=== PATIENT | male | born 1980 | race Two or more races ===

== ENCOUNTER 2017-02-24 09:26 | Emergency (ER) | payer MEDICAID ==
[~2017-02-24] VITALS: Ht 180.3 cm; Wt 104.3 kg
[2017-02-24 09:26] VITALS: BP 145/69
== END 2017-02-24 10:20 | disposition home or self-care (01) ==
LOC: ER 09:28
DX: L03.115 Cellulitis of right lower limb (principal); F17.210 Nicotine dependence, cigarettes, uncomplicated
CPT/HCPCS: 99284; A4606; Z7610

== ENCOUNTER 2017-09-24 15:01 | Emergency (ER) | payer BC, MEDICAID, OTHER ==
[~2017-09-24] VITALS: Ht 180.3 cm; Wt 115.7 kg
--- NOTE | 2017-09-24 15:05 | NUR ---
AAOX3, BIB MOM C/ORLE CELLULITIS S/P Sx 5 MONTHS AGO. RR IS EVEN AND UNLABORED WITH NAD NOTED. CMS WNL. SKIN IS WARM AND DRY. PROVIDED WARM BLANKET FOR COMFORT. AWAITING MD FOR EVAL.
[2017-09-24] MEDS ORDERED: FAMOTIDINE/PF INJ 20 MG/2 ML VIAL IV ONE ×2 (15:30→15:48)
[2017-09-24] MEDS ORDERED: PIPERACILLIN /TAZOBACTAM 3.375 G in IV D5W 50 ML IV ONE (15:30)
[2017-09-24 15:35] LABS: BASOPHILS # (AUTO) 0.1 /CMM (0.0-0.2); BASOPHILS % (AUTO) 0.9 % (0.0-2.0); EOSINOPHILS % (AUTO) 4.6 % (0.0-6.0); HEMATOCRIT 44 % (39-51); HEMOGLOBIN 15.8 g/dL (13.5-17.5); LYMPHOCYTES # (AUTO) 3.3 /CMM (0.8-4.8); LYMPHOCYTES % (AUTO) 30.8 % (20.0-44.0); MEAN CORPUSCULAR HGB CONC 36 g/dl (31.0-36.0); MEAN CORPUSCULAR VOLUME 85 fL (80-96); MONOCYTES # (AUTO) 0.4 /CMM (0.1-1.30); MONOCYTES % (AUTO) 3.6 % (2.0-12.0); NEUTROPHILS # (AUTO) 6.5 /CMM (1.8-8.9); NEUTROPHILS % (AUTO) 60.1 % (43.0-81.0); PLATELET COUNT (AUTO) 335 /CMM (150-450); RDW COEFFICIENT OF VARIATION 11.8 (11.5-15.0); RED BLOOD CELL COUNT(AUTO) 5.19 MIL/uL (4.5-6.0); WHITE BLOOD COUNT (AUTO) 10.8 K/uL (4.3-11.0)
[2017-09-24] MEDS ORDERED: DIPH25CA6 PO (15:38)
[2017-09-24 15:44] LABS: CALCIUM, SERUM 9.1 mg/dL (8.5-10.1); POTASSIUM 4.1 mmol/L (3.5-5.1)
[2017-09-24 17:14] VITALS: BP 110/76
== END 2017-09-24 17:15 | disposition home or self-care (01) ==
LOC: ER 15:03
DX: L03.115 Cellulitis of right lower limb (principal); L30.9 Dermatitis, unspecified; F10.10 Alcohol abuse, uncomplicated; F17.200 Nicotine dependence, unspecified, uncomplicated; Z88.1 Allergy status to other antibiotic agents
CPT/HCPCS: 36415; 80048; 82962; 85025; 96365; 96375; 99284; A4606; J2543; J3490; J7060; Z7610

== ENCOUNTER 2017-09-25 18:34 | Emergency (ER) | payer OTHER ==
[~2017-09-25] VITALS: Ht 180.3 cm; Wt 113.4 kg
[~2017-09-25 18:34] MED LIST: DIPH25CA6 PO
[2017-09-25 19:16] VITALS: BP 119/77
[2017-09-25] MEDS ORDERED: diphenhydrAMINE HCL 50 MG/ML VIAL IM ONE (20:00)
[2017-09-25] MEDS ORDERED: diphenhydrAMINE HCL 50 MG/ML VIAL ONE (20:21)
== END 2017-09-25 20:29 | disposition home or self-care (01) ==
LOC: ER 18:38
DX: R21 Rash and other nonspecific skin eruption (principal); Z88.1 Allergy status to other antibiotic agents; F17.200 Nicotine dependence, unspecified, uncomplicated
CPT/HCPCS: A4606; J1200; Z7610

== ENCOUNTER 2020-12-24 12:47 | Inpatient (IN) | payer MEDICAID ==
[~2020-12-24] VITALS: Ht 180.3 cm; Wt 127.0 kg
[~2020-12-24 12:47] MED LIST changes: +DIPH25CA51 PO; -DIPH25CA6 PO
--- NOTE | 2020-12-24 13:25 | NUR ---
THE PATIENT IS BIBS FOR C/O SKIN REDNESS/DISCOLORATION STARTED 3 DAYS AGO IN PREVIOUS SURGICAL SITE, RIGHT LEG. RATES PAIN 6/10. IN ROOM AIR AND DENIES SOB. RESPIRATION REGULAR AND UNLABORED. WILL CONTINUE TO MONITOR THE PATIENT.
--- NOTE | 2020-12-24 14:10 | NUR ---
no apparent change in condition, to er bed 1
[2020-12-24] MEDS ORDERED: VANCOMYCIN 1 GM in IV D5W 250 ML IV ONE (14:30)
[2020-12-24 14:48] LABS: BASOPHILS # (AUTO) 0.1 K/uL (0.0-0.2); BASOPHILS % (AUTO) 0.8 % (0.0-2.0); HEMATOCRIT 43 % (39-51); HEMOGLOBIN 14.3 g/dL (13.5-17.5); LYMPHOCYTES # (AUTO) 2.9 K/uL (0.8-4.8); LYMPHOCYTES % (AUTO) 25.6 % (20.0-44.0); MEAN CORPUSCULAR HGB CONC 33 g/dl (31.0-36.0); MEAN CORPUSCULAR VOLUME 88 fL (80-96); MONOCYTES # (AUTO) 0.9 K/uL (0.1-1.30); MONOCYTES % (AUTO) 8.4 % (2.0-12.0); NEUTROPHILS % (AUTO) 62.2 % (43.0-81.0); PLATELET COUNT (AUTO) 273 K/uL (150-450); WHITE BLOOD COUNT (AUTO) 11.2 K/uL (4.3-11.0)
[2020-12-24 14:58] LABS: ALBUMIN 3.7 g/dL (3.4-5.0); BILIRUBIN,DIRECT 0.1 mg/dL (0.0-0.2); BILIRUBIN,TOTAL 0.6 mg/dL (0.2-1.0); CALCIUM, SERUM 8.9 mg/dL (8.5-10.1); CREATININE 0.9 mg/dL (0.6-1.3); POTASSIUM 4.5 mmol/L (3.5-5.1)
--- NOTE | 2020-12-24 15:03 | NUR ---
MOVE SHEET SUBMITTED
--- NOTE | 2020-12-24 15:09 | NUR ---
COVID SWAB SENT TO LAB.
--- NOTE | 2020-12-24 15:24 | NUR ---
[facility] CALLED TELECOMMUNICATIONS LINESWORKER PAGED.
--- NOTE | 2020-12-24 16:00 | NUR ---
GOT BED 313-1
--- NOTE | 2020-12-24 16:07 | NUR ---
Sonya garrett in [facility] - 12/24/20 at 1611 by WENDY PATIENT TRANSFERRED TO ROOM [facility] IN STABLE CONDITION. NO DISTRESS NOTED.
[2020-12-24 16:30] VITALS: BP 130/77
--- NOTE | 2020-12-24 16:41 | NUR ---
REPORT GIVEN TO BRYON WRIGHT FOR IOANA.
--- NOTE | 2020-12-24 16:51 | NUR ---
PATIENT TRANSFERRED TO [facility], IN NO DISTRESS. PATIENT IN STABLE CONDITION.
[2020-12-24] MEDS ORDERED: MAG HYDROX/AL HYDROX/SIMETH 30 ML UDC PO PRN (17:30)
[2020-12-24] MEDS ORDERED: ZOLPIDEM TARTRATE 5 MG TABLET PO PRN (17:30)
[2020-12-24] MEDS ORDERED: HYDROCODONE/APAP 10/325MG TABLET PO PRN (17:30)
[2020-12-24] MEDS ORDERED: HYDROCODONE/APAP 5/325MG TABLET PO PRN (17:30)
[2020-12-24] MEDS ORDERED: ONDANSETRON HCL/PF 4 MG/2 ML VIAL IVP PRN (17:30)
[2020-12-24] MEDS ORDERED: MAGNESIUM HYDROXIDE 30 ML UDC PO PRN (17:30)
[2020-12-24] MEDS ORDERED: Z GUARD REMEDY 2 OZ OINT TP PRN (17:30)
[2020-12-24] MEDS ORDERED: ACETAMINOPHEN 325 MG TABLET PO PRN (17:30)
[2020-12-24] MEDS ORDERED: VANCOMYCIN 0.75 GM in IV D5W 250 ML IV ONE (18:00)
--- NOTE | 2020-12-24 19:00 | NUR ---
MS RN OPENING NOTE RECEIVED PT AWAKE IN BED AT THIS TIME. AOX4, ABLE TO MAKE NEEDS KNOWN. NO SOB NOTED. NO C/O PAIN AT THIS TIME, NO S/O ANY ACUTE DISTRESS NOTED. RESPIRATIONS EVEN AND UNLABORED, STABLE ON RA. IV ACCESS RAC 18G. SAFETY PRECAUTIONS IN PLACE AND MAINTAINED AT ALL TIMES. BED IN LOWEST LOCKED POSITION, HOB ELEVATED, SIDE RAILS UP X2, CALL LIGHT AND TABLE WITHIN REACH. WILL CONTINUE TO MONITOR
[2020-12-24 20:00] VITALS: BP 93/55
[2020-12-25] MEDS: VANCOMYCIN 1.25 GM in IV D5W 250 ML IV SCH ×3 (02:01→18:46)
--- NOTE | 2020-12-25 06:00 | NUR ---
ENDORSE TO AM NURSE
--- NOTE | 2020-12-25 06:10 | NUR ---
RN CLOSING NOTE PT IS AWAKE. ENDORSE TO AM NURSE
[2020-12-25 06:29] LABS: BASOPHILS # (AUTO) 0.1 K/uL (0.0-0.2); BASOPHILS % (AUTO) 0.9 % (0.0-2.0); EOSINOPHILS % (AUTO) 4.2 % (0.0-6.0); HEMATOCRIT 41 % (39-51); HEMOGLOBIN 13.8 g/dL (13.5-17.5); LYMPHOCYTES # (AUTO) 3.4 K/uL (0.8-4.8); LYMPHOCYTES % (AUTO) 32.2 % (20.0-44.0); MEAN CORPUSCULAR HGB CONC 34 g/dl (31.0-36.0); MEAN CORPUSCULAR VOLUME 88 fL (80-96); MONOCYTES % (AUTO) 9.3 % (2.0-12.0); NEUTROPHILS # (AUTO) 5.7 K/uL (1.8-8.9); NEUTROPHILS % (AUTO) 53.4 % (43.0-81.0); PLATELET COUNT (AUTO) 271 K/uL (150-450); RED BLOOD CELL COUNT(AUTO) 4.59 MIL/uL (4.5-6.0); WHITE BLOOD COUNT (AUTO) 10.6 K/uL (4.3-11.0)
[2020-12-25 07:12] LABS: THYROID STIMULATING HORMONE 3.077 uIU/mL (0.358-3.74)
[2020-12-25 07:16] LABS: CALCIUM, SERUM 8.8 mg/dL (8.5-10.1); CREATININE 1.1 mg/dL (0.6-1.3); MAGNESIUM 2.4 mg/dL (1.8-2.4); PHOSPHORUS 5.4 mg/dL (2.5-4.9); POTASSIUM 4.5 mmol/L (3.5-5.1)
[2020-12-25 08:00] VITALS: BP 136/83
--- NOTE | 2020-12-25 14:06 | NUR ---
Patient is AOx4 complied with all medication regimens no s/s of infection at IV site skin intact no SOD nor SOB, ate 100% of food V/S are as followed B/P 128/79, P73, Resp. 16, Temp.97.4, [id number]%, call light is within reach will continue to monitor.
[2020-12-25 16:00] VITALS: BP 124/81
--- NOTE | 2020-12-25 19:00 | NUR ---
MS RN OPENING NOTE PT AWAKE IN BED AT THIS TIME. AOX4, ABLE TO MAKE NEEDS KNOWN. NO SOB NOTED. NO C/O PAIN AT THIS TIME, NO S/O ANY ACUTE DISTRESS NOTED. RESPIRATIONS EVEN AND UNLABORED, STABLE ON RA. IV ACCESS RU MIDLINE. SAFETY PRECAUTIONS IN PLACE AND MAINTAINED AT ALL TIMES. BED IN LOWEST LOCKED POSITION, HOB ELEVATED, SIDE RAILS UP X2, CALL LIGHT AND TABLE WITHIN REACH. WILL CONTINUE TO MONITOR
[2020-12-25 20:00] VITALS: BP 126/77
[2020-12-26] MEDS: VANCOMYCIN 1.5 GM in IV D5W 500 ML IV SCH ×3 (02:07→18:08)
--- NOTE | 2020-12-26 06:02 | NUR ---
RN CLOSING NOTE PT AWAKE IN BED NO S/S OF RESPIRATORY DISTRESS. PT REMAINED STABLE ON RA THROUGHOUT SHIFT.SAFETY MEASURES IN PLACE. SIDE RAILS RAISED. BED LOWERED. CALL LIGHT WITHIN REACH. REPORT TO BE GIVEN TO AM NURSE FOR IOANA.
[2020-12-26 07:12] LABS: CALCIUM, SERUM 8.5 mg/dL (8.5-10.1); POTASSIUM 4.7 mmol/L (3.5-5.1)
--- NOTE | 2020-12-26 07:20 | NUR ---
MS RN OPENING NOTE PATIENT ALERT AND ORIENTED X 4 ON BED. PATIENT WITH EQUAL AND UNLABORED BREATHING, WITH NO SIGNS OF RESPIRATORY DISTRESS. WITH RIGHT UPPER ARM MIDLINE FR18 PATENT AND INTACT. PATIENT IS AMBULATORY WITH STEADY GAIT. NO COMPLAIN OF PAIN OR DISCOMFORT. COMFORT MEASURES PROVIDED. SAFETY MEAURES ENSURED WITH BED AT LOWEST POSITION AND LOCKED. WITH SIDERAILS RAISED AND TABLE AND CALL LIGHT WITHIN REACH AT ALL TIMES. WILL CONTINUE TO MONITOR PATIENT.
[2020-12-26 08:34] VITALS: BP 133/98
--- NOTE | 2020-12-26 10:30 | NUR ---
MS RN NOTE PATIETN SEEN BY DR. MOREL.
--- NOTE | 2020-12-26 15:05 | NUR ---
Stock Sorter consult: oil well services superintendent consult for substance use. Patient is a 40-year-old, male. SW met with patient at his bedside in the med-surg unit. Patient was alert and oriented x4. Patient presented ambulatory. Patient stated that he currently lives with family at [address] [place] [id number]; [phone]. SW asked patient if he has access to social support and patient stated he has support from his family. Patient stated that he is currently employed. SW asked patient about his history of substance use and patient denied substance use. Patient denied history of mental illness. Patient denied suicidal or homicidal ideation. SW discussed discharge plans with the patient and patient stated that his family would be providing transportation. PLAN: Patient will return to his prior living arrangement at the time of discharge. No further SS intervention at this time, however, SW will remain available as needed.
[2020-12-26 16:29] VITALS: BP 159/92
--- NOTE | 2020-12-26 18:59 | NUR ---
MS RN CLOSING NOTE PATIENT ALERT AND ORIENTED X 4 ON BED. PATIENT WITH EQUAL AND UNLABORED BREATHING, WITH NO SIGNS OF RESPIRATORY DISTRESS. WITH RIGHT UPPER ARM MIDLINE FR18 PATENT AND INTACT. PATIENT IS AMBULATORY WITH STEADY GAIT. NO COMPLAIN OF PAIN OR DISCOMFORT. COMFORT MEASURES PROVIDED. SAFETY MEAURES ENSURED WITH BED AT LOWEST POSITION AND LOCKED. WITH SIDERAILS RAISED AND TABLE AND CALL LIGHT WITHIN REACH AT ALL TIMES. PATIENT ENDORSED TO NEXT SHIFT FOR CONTINUITY OF CARE.
--- NOTE | 2020-12-26 19:15 | NUR ---
MS RN NOTES IV VANCOMYCIN DISCONTINUED PER PHARMACY ORDER. PATIENT BARELY HAD ANY INFUSED BECAUSE PATIENT WAS IN THE BATHROOM ALL THE TIME. ENDORSED ACCORDINGLY.
--- NOTE | 2020-12-26 19:16 | NUR ---
CONTINUITY OF CARE Patient sitting up in bed, awake, A/O x4. Right lower leg with discoloration erythema and warmth, patient denies pain at this time. YURY midline, vancomycin infusion was stopped by ADRIANA Rivera, per pharmacy instruction. Vancomycin trough high. Will cont to monitor, call light within reach.
[2020-12-26 20:00] VITALS: BP 153/73
--- NOTE | 2020-12-27 01:52 | NUR ---
SHOWER Patient requesting to take shower, per patient he normally take shower before he goes to sleep, and he didnt do it earlier. Patient has no open wound. Notified Dr. Watt with order placed. Instructed patient to call for assistance if needed inside shower room, verbalized understanding.
--- NOTE | 2020-12-27 06:06 | NUR ---
END OF SHIFT REPORT Patient is A/O x4. Right leg cellulitis. On IV Vancomycin, Afebrile. No c/o pain. Independent with ambulation. Plan for dc home with PO Abx. Will endorse to oncoming RN.
--- NOTE | 2020-12-27 07:35 | NUR ---
MS RN OPENING NOTES RECEIVED PATIENT IN BED, AWAKE, A/O X4. PATIENT ON ROOM AIR; BREATHING EVEN AND UNLABORED. AMBULATORY. NO COMPLAINS OF PAIN. YURY MIDLINE PRESENT AND INTACT; SL. SAFETY PRECAUTIONS IN PLACE; BED IN LOW POSITIONA DN LOCKED, RAILS UP X2, CALL LIGHT WITHIN REACH. WILL CONTINUE TO MONITOR PATIENT.
[2020-12-27 08:00] VITALS: BP 134/93
[2020-12-27 08:06] LABS: CALCIUM, SERUM 8.5 mg/dL (8.5-10.1); CREATININE 0.9 mg/dL (0.6-1.3); POTASSIUM 4.8 mmol/L (3.5-5.1)
[2020-12-27] MEDS ORDERED: VANCOMYCIN 1.25 GM in IV D5W 250 ML IV SCH (10:00)
--- NOTE | 2020-12-27 14:30 | NUR ---
MS ROPE TOW OPERATOR NOTES PATIENT DISCHARGED HOME IN MEDICALLY STABLE CONDITION. PATIENT A/O X4 AND ABLE TO MAKE NEEDS KNOWN. ALL DISCHARGE DOCUMENTATION READY, TEACHING REGARDING DISCHARGE AND PHYSICIAN ORDER PROVIDED; PATIENT VERBALIZED UNDERSTANDING. DISCHARGE PAPERS SIGNED. BELONGINGS ACCOUNTED FOR AND FORM SIGNED WELL. BEFORE LEAVING THE UNIT IV ACCESS WAS REMOVED WITH THE WRISTBAND. PATIENT LEFT THE UNIT AT 1420 AND WAS PICKED UP BY HIS BROTHER IN A PRIVATE CAR.
== END 2020-12-27 14:24 | disposition home or self-care (01) | DRG 383 ==
LOC: ER 12:59 → MED 16:42
PROC: 05H933Z Insertion of Infusion Device into Right Brachial Vein, Percutaneous Approach (ICD-10-PCS; principal; 2020-12-25)
DX: L03.115 Cellulitis of right lower limb (principal); F17.210 Nicotine dependence, cigarettes, uncomplicated; Z20.822 Contact with and (suspected) exposure to COVID-19; Z88.1 Allergy status to other antibiotic agents; V89.2XXS Person injured in unspecified motor-vehicle accident, traffic, sequela; Z87.81 Personal history of (healed) traumatic fracture
CPT/HCPCS: 36415; 71045-TC; 73590-TC; 73610-TC; 80048-TC; 80061-TC; 80076-TC; 80202-TC; 83605-TC; 83735-TC; 84100-TC; 84443-TC; 85025-TC; 85730-TC; 87040-TC; 87081-TC; 93971-TC; C9803; G0378; J3370; J7050; J7060

== ENCOUNTER 2021-07-06 11:12 | Emergency (ER) | payer MEDICAID, OTHER ==
[~2021-07-06] VITALS: Ht 180.3 cm; Wt 129.3 kg
[2021-07-06 11:24] VITALS: BP 133/83
--- NOTE | 2021-07-06 11:27 | NUR ---
BIBS FOR C/O RLE PAIN AND SWELLING, DISCOLORATION X 2 DAYS. RATES PAIN 10/10. RESPIRATION REGULAR AND UNLABORED. WILL CONTINUE TO MONITOR THE PATIENT.
[2021-07-06] MEDS ORDERED: SULF1TAB48 PO (11:46)
== END 2021-07-06 13:45 | disposition home or self-care (01) ==
LOC: ER 11:14
DX: L03.115 Cellulitis of right lower limb (principal); F17.200 Nicotine dependence, unspecified, uncomplicated; Z88.1 Allergy status to other antibiotic agents; Z88.8 Allergy status to other drugs, medicaments and biological substances

== ENCOUNTER 2021-09-29 17:41 | Emergency (ER) | payer OTHER ==
[~2021-09-29] VITALS: Ht 180.3 cm; Wt 136.1 kg
[~2021-09-29 17:41] MED LIST changes: +SULF1TAB48 PO
--- NOTE | 2021-09-29 17:52 | NUR ---
CAME IN FOR WORSENING BLE CELLULITIS (MORE ON THE LEFT) x 1 WEEK. TO ER BED 14, HOOKED TO MONITOR, CHANGED TO HOSP GOWN, WARM BLANKET PROVIDED. PATIENT AAO x 4. NOT IN DISTRESS. AWAITING MD BHANDARI
[2021-09-29] MEDS ORDERED: SULFAMETH/TRIMETH 800/160 MG 1 UDTAB TABLET PO ONE (19:30)
[2021-09-29] MEDS ORDERED: HYDROCODONE/APAP 5/325MG TABLET PO ONE (19:30)
[2021-09-29] MEDS ORDERED: CEPHALEXIN MONOHYDRATE 500 MG CAPSULE PO ONE ×2 (19:30→19:56)
[2021-09-29] MEDS ORDERED: CEPH500C2 PO (19:32)
[2021-09-29] MEDS ORDERED: SULF1TAB48 PO (19:32)
[2021-09-29] MEDS ORDERED: HYDROCODONE/APAP 5/325MG TABLET ONE (19:56)
[2021-09-29] MEDS ORDERED: SULFAMETH/TRIMETH 800/160 MG 1 UDTAB TABLET ONE (19:56)
[2021-09-29 20:43] VITALS: BP 128/98
--- NOTE | 2021-09-29 20:43 | NUR ---
Patient discharged to home in stable condition. Written and verbal after care instructions given. Patient verbalizes understanding of instruction.
== END 2021-09-29 20:44 | disposition home or self-care (01) ==
LOC: ER 17:44
DX: L03.116 Cellulitis of left lower limb (principal); F17.200 Nicotine dependence, unspecified, uncomplicated; Z88.8 Allergy status to other drugs, medicaments and biological substances; Z79.899 Other long term (current) drug therapy

== ENCOUNTER 2021-11-07 12:19 | Inpatient (IN) | payer OTHER ==
[~2021-11-07] VITALS: Ht 180.3 cm; Wt 117.9 kg
[~2021-11-07 12:19] MED LIST changes: +CEPH500C2 PO
--- NOTE | 2021-11-07 12:45 | NUR ---
MOVE SHEET SUBMITTED.
[2021-11-07] MEDS ORDERED: HYDROCODONE/APAP 10/325MG TABLET PO ONE (13:00)
[2021-11-07] MEDS ORDERED: CLINDAMYCIN 900 MG in IV D5W 50 ML IV ONE (13:00)
[2021-11-07] MEDS ORDERED: VANCOMYCIN 1 GM in IV D5W 250 ML IV ONE (13:00)
[2021-11-07] MEDS ORDERED: AZTREONAM 1 G in IV NS 0.9% 100 ML IV ONE (13:00)
--- NOTE | 2021-11-07 13:00 | NUR ---
RECIVED PT 40 MALE CAME FROM HOME c/o swallen and rednessin both lower extramity with open new and old blister daring up no draining
--- NOTE | 2021-11-07 13:05 | NUR ---
Inserted andressa # [address] ac blood drow and sended to lab blood culure x 2 sended
[2021-11-07 13:08] LABS: BASOPHILS # (AUTO) 0.1 K/uL (0.0-0.2); BASOPHILS % (AUTO) 0.8 % (0.0-2.0); EOSINOPHILS % (AUTO) 2.9 % (0.0-6.0); HEMATOCRIT 33 % (39-51); HEMOGLOBIN 10.9 g/dL (13.5-17.5); LYMPHOCYTES # (AUTO) 1.8 K/uL (0.8-4.8); MEAN CORPUSCULAR HGB CONC 33 g/dl (31.0-36.0); MEAN CORPUSCULAR VOLUME 82 fL (80-96); MONOCYTES # (AUTO) 0.7 K/uL (0.1-1.30); MONOCYTES % (AUTO) 7.6 % (2.0-12.0); NEUTROPHILS % (AUTO) 70.7 % (43.0-81.0); PLATELET COUNT (AUTO) 339 K/uL (150-450); RED BLOOD CELL COUNT(AUTO) 4.01 MIL/uL (4.5-6.0); WHITE BLOOD COUNT (AUTO) 9.8 K/uL (4.3-11.0)
[2021-11-07] MEDS ORDERED: VANCOMYCIN 1 GM VIAL ONE (13:13)
[2021-11-07] MEDS ORDERED: HYDROCODONE/APAP 10/325MG TABLET ONE (13:14)
[2021-11-07 13:37] LABS: ALBUMIN 2.6 g/dL (3.4-5.0); BILIRUBIN,DIRECT 0.1 mg/dL (0.0-0.2); BILIRUBIN,TOTAL 0.5 mg/dL (0.2-1.0); CALCIUM, SERUM 8.3 mg/dL (8.5-10.1); CREATININE 0.9 mg/dL (0.6-1.3); POTASSIUM 3.6 mmol/L (3.5-5.1); TOTAL PROTEIN, SERUM 8.3 g/dL (6.4-8.2)
--- NOTE | 2021-11-07 14:12 | NUR ---
PT RESTING AND ASLEEPY NO PAIN
--- NOTE | 2021-11-07 15:25 | NUR ---
[facility] CALLED SENIOR GRANTS OFFICER PAGED.
--- NOTE | 2021-11-07 15:30 | NUR ---
ivan villeda sended to lab
--- NOTE | 2021-11-07 15:56 | NUR ---
GOT BED 320-2
--- NOTE | 2021-11-07 16:00 | NUR ---
HOSPITLIST HERE SEE AND EXAMIN PT MANUELOK WITH PT UA SEND TO LAB VODING FLEELY 800ML CLEAR YELLOW COLOR
--- NOTE | 2021-11-07 16:19 | NUR ---
MRSA SENT TO LAB
[2021-11-07] MEDS ORDERED: HYDROCODONE/APAP 5/325MG TABLET PO PRN (16:30)
[2021-11-07] MEDS ORDERED: ZOLPIDEM TARTRATE 5 MG TABLET PO PRN (16:30)
[2021-11-07] MEDS ORDERED: ONDANSETRON HCL/PF 4 MG/2 ML VIAL IVP PRN (16:30)
[2021-11-07] MEDS ORDERED: Z GUARD REMEDY 4 OZ OINT TP PRN (16:30)
[2021-11-07] MEDS ORDERED: MAG HYDROX/AL HYDROX/SIMETH 30 ML UDC PO PRN (16:30)
[2021-11-07] MEDS ORDERED: MAGNESIUM HYDROXIDE 30 ML UDC PO PRN (16:30)
[2021-11-07] MEDS ORDERED: ACETAMINOPHEN 325 MG TABLET PO PRN (16:30)
--- NOTE | 2021-11-07 16:52 | NUR ---
TO ROOM 320-1 HAND OFF NOLA RM VS STABLE PAIN 0/10
--- NOTE | 2021-11-07 17:35 | NUR ---
ms rn received a new admission from er, awake,alert,oriented x4,not in any form of distress, respirations even and unlabored,no sob noted, noted to have bilateral lower leg wounds w/ scab, will monitor patient.
[2021-11-07] MEDS: ENOXAPARIN SODIUM 40 MG/0.4 ML DISP.SYRIN SQ SCH (18:42)
--- NOTE | 2021-11-07 18:45 | NUR ---
ms rn due meds given,tolerated well.
[2021-11-07 20:00] VITALS: BP 102/68
--- NOTE | 2021-11-07 20:21 | NUR ---
MS RN OPENING NOTES: RECEIVED PATIENT AWAKE IN BED, BED IN LOW POSITION, CALL LIGHTS WITHIN REACH, NO COMPLAIN OF PAIN AND DISCOMFORT AT THIS TIME, ON ROOM AIR SATURATING WELL WITH IV LINE AT RAC#18 SL, PATIENT IS A/OX4 AMBULATORY ABLE TO MAKE NEED KNOWN, SKIN ASSESSMENT DONE DOCUMENTED, PATIENT KEPT CLEAN AND DRY ALL NEEDS MET WILL CONTINUE TO MONITOR.
[2021-11-07] MEDS ORDERED: CLINDAMYCIN IV RTU IN D5W 900 MG/50 ML PIGGYBACK IV SCH (21:00)
[2021-11-07] MEDS: CLINDAMYCIN 600 MG in IV D5W 50 ML IV SCH (21:02)
[2021-11-07] MEDS: VANCOMYCIN 1 GM in IV D5W 250 ML IV SCH (21:23)
[2021-11-08] MEDS: CLINDAMYCIN 600 MG in IV D5W 50 ML IV SCH (05:19)
[2021-11-08] MEDS: VANCOMYCIN 1 GM in IV D5W 250 ML IV SCH (05:34)
[2021-11-08 05:53] LABS: BASOPHILS # (AUTO) 0.1 K/uL (0.0-0.2); BASOPHILS % (AUTO) 0.7 % (0.0-2.0); EOSINOPHILS % (AUTO) 4.2 % (0.0-6.0); HEMATOCRIT 34 % (39-51); HEMOGLOBIN 11.2 g/dL (13.5-17.5); LYMPHOCYTES # (AUTO) 2.3 K/uL (0.8-4.8); LYMPHOCYTES % (AUTO) 23.6 % (20.0-44.0); MEAN CORPUSCULAR HGB CONC 33 g/dl (31.0-36.0); MEAN CORPUSCULAR VOLUME 82 fL (80-96); MONOCYTES # (AUTO) 0.7 K/uL (0.1-1.30); MONOCYTES % (AUTO) 7.3 % (2.0-12.0); NEUTROPHILS # (AUTO) 6.4 K/uL (1.8-8.9); NEUTROPHILS % (AUTO) 64.2 % (43.0-81.0); PLATELET COUNT (AUTO) 398 K/uL (150-450)
[2021-11-08 06:13] LABS: CALCIUM, SERUM 8.4 mg/dL (8.5-10.1); CREATININE 0.9 mg/dL (0.6-1.3); MAGNESIUM 2.1 mg/dL (1.8-2.4); PHOSPHORUS 4.1 mg/dL (2.5-4.9); POTASSIUM 4.2 mmol/L (3.5-5.1)
--- NOTE | 2021-11-08 06:34 | NUR ---
RN CLOSING NOTES: PATIENT SLEEP IN BED, AROUSABLE TO VERBAL STIMULI, BED IN LOW POSITION, CALL LIGHTS WITHIN REACH, NO COMPLAIN OF PAIN AND DISCOMFORT AT THIS TIME, PATIENT IS A/OX4 AMBULATORY,ABLE TO MAKE NEED KNOWN, ON ROOM AIR SATURATING WELL, WITH IV LINE AT RAC#18 SL, PATIENT KEPT CLEAN AND DRY ALL NEEDS MEET, ENDORSE TO INCOMING SHIFT.
--- NOTE | 2021-11-08 07:00 | NUR ---
MS RN OPENING NOTES PATIENT LAYING IN BED, A/O X 4, ABLE TO MAKE NEEDS KNOWN. TOLERATING WELL ON ROOM AIR WITH NO S/S RESPIRATORY DISTRESS OR SOB. NO COMPLAINTS OF PAIN OR DISCOMFORT AT THIS TIME. RAC # 18 CLEAN, INTACT, AND FLUSHING WELL. SAFETY MEASURES IN PLACE: BED IN LOWEST LOCKED POSITION, SIDE RAILS UP X 2, CALL LIGHT WITHIN REACH. WILL CONTINUE TO MONITOR.
[2021-11-08] MEDS ORDERED: PANTOPRAZOLE 40 MG TABLET.DR PO SCH (07:30)
[2021-11-08 08:00] VITALS: BP 126/88
[2021-11-08] MEDS: ENOXAPARIN SODIUM 40 MG/0.4 ML DISP.SYRIN SQ SCH (08:15)
--- NOTE | 2021-11-08 12:00 | NUR ---
PATIENT LEFT AMA @ 1200 PATIENT ABRUPTLY STATED HE NEEDED TO LEAVE IMMEDIATELY DUE TO A FAMILY EMERGENCY AND DECLINED TO PROVIDE FURTHER DETAILS. IV LINE REMOVED. PATIENT DRESSED HIMSELF IN OWN CLOTHING AND LEFT UNIT BEFORE MD DISCHARGE INSTRUCTIONS OR PAPERWORK WAS ABLE TO BE PROVIDED. MD WAS NOTIFIED OF AMA. Addendum: 11/08/21 at 1414 by LEIDY BUSTILLO RN RISKS OF PATIENT LEAVING HOSPITAL PRIOR TO MEDICAL CLEARANCE EXPLAINED, PATIENT AGAIN INSISTED ON LEAVING HOSPITAL IMMEDIATELY. INCIDENT REPORT FILED # [id number].
== END 2021-11-08 12:00 | disposition left against medical advice (07) | DRG 383 ==
LOC: ER 12:23 → MED 16:01
PROVIDERS: ADMIT Student in an Organized Health Care Education/Training Program; ATTEND Student in an Organized Health Care Education/Training Program
DX: L03.115 Cellulitis of right lower limb (principal); E44.0 Moderate protein-calorie malnutrition; E87.1 Hypo-osmolality and hyponatremia; E88.09 Other disorders of plasma-protein metabolism, not elsewhere classified; Z88.1 Allergy status to other antibiotic agents; D64.9 Anemia, unspecified; L03.116 Cellulitis of left lower limb; Z53.29 Procedure and treatment not carried out because of patient's decision for other reasons; F15.10 Other stimulant abuse, uncomplicated; F17.200 Nicotine dependence, unspecified, uncomplicated; F12.10 Cannabis abuse, uncomplicated; Y92.9 Unspecified place or not applicable; W57.XXXA Bitten or stung by nonvenomous insect and other nonvenomous arthropods, initial encounter
CPT/HCPCS: 36415; 73590-TC; 80048-TC; 80076-TC; 83605-TC; 83735-TC; 84100-TC; 85025-TC; 85730-TC; 87040-TC; 87081-TC; 97116-TC; 97530-TC; G0378; J1650; J3370; J3490; J7030; J7050; J7060

== ENCOUNTER 2021-12-16 04:49 | Emergency (ER) | payer OTHER ==
[~2021-12-16] VITALS: Ht 180.3 cm; Wt 127.0 kg
[2021-12-16 05:35] VITALS: BP 141/85
--- NOTE | 2021-12-16 05:44 | NUR ---
PT LEFT WITHOUT BEING SEEN BY MD AND DID NOT WISH TO HAVE ANY INTERVENTIONS PERFORMED. AMBULATED OUT OF ER WITH STEADY GAIT.
== END 2021-12-16 05:47 | disposition left against medical advice (07) ==
LOC: ER 04:51
DX: Z53.21 Procedure and treatment not carried out due to patient leaving prior to being seen by health care provider (principal)

== ENCOUNTER 2021-12-17 22:48 | Inpatient (IN) | payer OTHER ==
[~2021-12-17] VITALS: Ht 170.2 cm; Wt 108.0 kg
--- NOTE | 2021-12-18 01:13 | NUR ---
BIBMOTHER C/O KRISTOPHER LEG PAIN WITH WOUNDS. PATIENT ALERT AND ORIENTED X3. AMBULATORY WITH NON LABORED BREATHING IN BED 12 LORNA MONITOR AND POX, AWAITING MD BHANDARI.
[2021-12-18] MEDS ORDERED: VANCOMYCIN 1 GM VIAL ONE (01:21)
--- NOTE | 2021-12-18 01:28 | NUR ---
BLOOD CULTURES COLLECTED AND SENTT O LAB
--- NOTE | 2021-12-18 01:28 | NUR ---
BLOOD COLLECTED AND SENT TO LAB
[2021-12-18] MEDS ORDERED: VANCOMYCIN 1 GM in IV D5W 250 ML IV ONE (01:30)
[2021-12-18 01:44] LABS: BASOPHILS % (AUTO) 0.3 % (0.0-2.0); EOSINOPHILS % (AUTO) 0.2 % (0.0-6.0); HEMATOCRIT 37 % (39-51); LYMPHOCYTES # (AUTO) 1.3 K/uL (0.8-4.8); LYMPHOCYTES % (AUTO) 8.7 % (20.0-44.0); MEAN CORPUSCULAR HGB CONC 33 g/dl (31.0-36.0); MEAN CORPUSCULAR VOLUME 81 fL (80-96); MONOCYTES # (AUTO) 0.4 K/uL (0.1-1.30); MONOCYTES % (AUTO) 2.5 % (2.0-12.0); NEUTROPHILS % (AUTO) 88.3 % (43.0-81.0); PLATELET COUNT (AUTO) 463 K/uL (150-450); RED BLOOD CELL COUNT(AUTO) 4.54 MIL/uL (4.5-6.0); WHITE BLOOD COUNT (AUTO) 14.8 K/uL (4.3-11.0)
[2021-12-18 01:56] LABS: CALCIUM, SERUM 8.3 mg/dL (8.5-10.1); CARBON DIOXIDE 24 mmol/L (21-32); CHLORIDE 96 mmol/L (98-107); CREATININE 1.5 mg/dL (0.6-1.3); GLUCOSE 95 mg/dL (74-106); POTASSIUM 3.6 mmol/L (3.5-5.1); SODIUM SERUM 133 mmol/L (136-145); UREA NITROGEN, BLOOD 17 mg/dL (7-18)
--- NOTE | 2021-12-18 02:05 | NUR ---
LACTIC ACID 2.7
[2021-12-18 02:06] LABS: ALANINE AMINOTRANSFERASE 13 U/L (12-78); ALBUMIN 2.6 g/dL (3.4-5.0); ALKALINE PHOSPHATASE 60 U/L (46-116); ASPARTATE AMINOTRANSFERASE 15 U/L (15-37); BILIRUBIN,DIRECT 0.2 mg/dL (0.0-0.2)
[2021-12-18 02:07] LABS: BILIRUBIN,TOTAL 0.7 mg/dL (0.2-1.0); TOTAL PROTEIN, SERUM 9.3 g/dL (6.4-8.2)
--- NOTE | 2021-12-18 02:16 | NUR ---
COVID ANTIGEN SWAB COLLECTED AND SENT TO LAB
--- NOTE | 2021-12-18 02:44 | NUR ---
UPDATED BRII EMERGENCY RESPONSE TECHNICIAN.
--- NOTE | 2021-12-18 04:03 | NUR ---
RECIEVED BED 321-2
--- NOTE | 2021-12-18 05:03 | NUR ---
REPORT GIVEN TO RN JESSICA
[2021-12-18 05:30] VITALS: BP 96/64
--- NOTE | 2021-12-18 05:30 | NUR ---
MS RESTAURANT WORKER NOTES RECEIVED PT FROM ED VIA [facility] AT 0511 W/ DX OF CELLULITIS. A/O X4. NON-COOPERATIVE WHEN BEING ASKED ADMISSION QUESTIONS, WENT TO SLEEP. BREATHING EVEN AND NON-LABORED ON ROOM AIR. NOT IN APPARENT DISTRESS. C/O PAIN AND ASKING FOR PAIN MEDS BUT THERE IS NO ORDER YET. HAS RIGHT ANTECUBITAL IV ACCESS #18G AND SALINE LOCKED. NO S/S OF INFILTRATION NOTED. MULTIPLE SCABS, SWELLING AND REDNESS NOTED ON BILATERAL HANDS, LOWER EXTREMITIES AND BACK. ALL BELONGINGS ACCOUNTED FOR. SAFETY PRECAUTIONS IN PLACE. WILL CONTINUE PLAN OF CARE.
--- NOTE | 2021-12-18 07:08 | NUR ---
MS RN OPENING NOTES RECEIVED PATIENT LYING IN BED ASLEEP, WAKES TO NAME. A/O X4. NO SOB NOTED. ON ROOM AIR. NO ACUTE DISTRESS NOTED. PATIENT HAS RIGHT ANTECUBITAL IV ACCESS #18G AND SALINE LOCKED. INTACT, PATENT AND FLUSHING. SKIN: MULTIPLE STABS NOTED ON BILATERAL LOWER EXTREMITIES, BILATERAL HANDS, AND SACRUM. SAFETY PRECAUTIONS IN PLACE: BED LOW AND LOCKED, SIDE RAILS UP X2, CALL LIGHT WITHIN REACH.
--- NOTE | 2021-12-18 07:27 | NUR ---
MS RN CLOSING NOTES PT LYING IN BED ASLEEP, DIFFICULT TO AROUSE. A/O X4. NO SOB OR NOTED. TOLERATING ROOM AIR WELL. NO ACUTE DISTRESS NOTED. AFEBRILE. HAS RIGHT ANTECUBITAL IV ACCESS #18G AND SALINE LOCKED. INTACT, PATENT AND FLUSHING. SKIN ASSESSMENT DONE AND PHOTOS TAKEN. ALL NEEDS ATTENDED. SAFETY PRECAUTIONS IN PLACE: BED LOW AND LOCKED, SIDE RAILS UP X2, CALL LIGHT WITHIN REACH.
[2021-12-18 08:00] VITALS: BP 100/75
--- NOTE | 2021-12-18 09:13 | NUR ---
WOUND CARE CONSULT: PT PRESENTS WITH SOME DRY SCABS TO BUTTOCKS, THIGHS AND SOME OPEN SCABS TO LOWER LEGS, PRESENT ON ADMISSION. DPM CONSULT CALLED TO DR ABDALLA. CURRENT BASIM SCORE IS 20. MD IN AGREEMENT WITH PLAN OF CARE.
[2021-12-18] MEDS ORDERED: MAG HYDROX/AL HYDROX/SIMETH 30 ML UDC PO PRN (11:30)
[2021-12-18] MEDS ORDERED: Z GUARD REMEDY 4 OZ OINT TP PRN (11:30)
[2021-12-18] MEDS ORDERED: ZOLPIDEM TARTRATE 5 MG TABLET PO PRN (11:30)
[2021-12-18] MEDS ORDERED: HYDROCODONE/APAP 5/325MG TABLET PO PRN (11:30)
[2021-12-18] MEDS ORDERED: ONDANSETRON HCL/PF 4 MG/2 ML VIAL IVP PRN (11:30)
[2021-12-18] MEDS ORDERED: ACETAMINOPHEN 325 MG TABLET PO PRN (11:30)
[2021-12-18] MEDS ORDERED: MAGNESIUM HYDROXIDE 30 ML UDC PO PRN (11:30)
[2021-12-18] MEDS: PANTOPRAZOLE 40 MG TABLET.DR PO SCH (12:15)
[2021-12-18] MEDS: HYDROCODONE/APAP 10/325MG TABLET PO PRN ×2 (12:16→17:24)
--- NOTE | 2021-12-18 12:16 | NUR ---
RN NOTES PATIENT COMPLAINED OF PAIN 10/10 OF L LEG. PRN NARCO 10 MG GIVEN @1216. WILL CONTINUE TO MONITOR.
--- NOTE | 2021-12-18 12:50 | NUR ---
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
[2021-12-18] MEDS: VANCOMYCIN 0.75 GM in IV D5W 250 ML IV SCH (14:05)
[2021-12-18] MEDS: IV NS 0.9% 1,000 ML IV PRN ×2 (14:05→23:01)
[2021-12-18 16:00] VITALS: BP 136/56
--- NOTE | 2021-12-18 18:38 | NUR ---
MS RN CLOSING NOTES PATIENT LYING IN BED ASLEEP, WAKES TO NAME, DIFFICULT TO AROUSE. A/O X4. NO SOB NOTED. ON ROOM AIR. NO ACUTE DISTRESS NOTED. PATIENT HAS RIGHT ANTECUBITAL IV ACCESS #18G AND SALINE LOCKED WITH 125 ML/HR RUNNING. INTACT, PATENT AND FLUSHING. SKIN: MULTIPLE STABS NOTED ON BILATERAL LOWER EXTREMITIES BILATERAL HANDS, AND SACRUM. ALL PRESCRIBED MEDICATION ADMINISTERED. SAFETY PRECAUTIONS MAINTAINED: BED LOW AND LOCKED, SIDE RAILS UP X2, CALL LIGHT WITHIN REACH. WILL ENDORSE TO NEXT SHIFT ANY IOANA.
--- NOTE | 2021-12-18 19:20 | NUR ---
RN NOTE PT RESTING IN BED ASLEEP, EASY TO AROUSE WHEN NAME IS CALLED, BUT GOES RIGHT BACK TO SLEEP. DOES NOT ENGAGE IN CONVERSATION. SOMNOLENT SINCE A.M. SHIFT PER A.M. NURSE REPORT. RESPIRATIONS EVEN/UNLABORED. ON ROOM AIR. O2 SAT 97%. PT WITH BLE CELLULITIS, WITH DRESSINGS IN PLACE, C/D/I. PT'S MOM HERE, VISITING, STATING CONCERNS THAT PT IS FEELING "DEPRESSED" AND WANTING PSYCH EVAL. WILL INFORM MD/HOSPITALIST. PT IN NO ACUTE DISTRESS. SAFETY MEASURES IN PLACE.
[2021-12-18 20:00] VITALS: BP 103/60
[2021-12-18] MEDS: HEPARIN SODIUM, PORCINE 5000 UNITS/1 ML VIAL SQ SCH (20:52)
--- NOTE | 2021-12-18 22:00 | NUR ---
RN NOTE HOSP/DNP TYLER WITH ORDER FOR PSYCH CONSULT
--- NOTE | 2021-12-19 00:19 | NUR ---
RN NOTE ENDORSED TO ADRIANA RIBEIRO FOR CONTINUITY OF CARE
--- NOTE | 2021-12-19 00:20 | NUR ---
MS/RN NOTE RECEIVED REPORT FROM ADRIANA NEWTON FOR IOANA. PATIENT CURRENTLY SLEEPING IN BED. DENIES PAIN AT THIS TIME. ALL NEEDS ATTENDED TO.
[2021-12-19] MEDS: VANCOMYCIN 0.75 GM in IV D5W 250 ML IV SCH (01:22)
[2021-12-19] MEDS: HYDROCODONE/APAP 10/325MG TABLET PO PRN (03:58)
[2021-12-19 06:17] LABS: BASOPHILS # (AUTO) 0.1 K/uL (0.0-0.2); BASOPHILS % (AUTO) 0.6 % (0.0-2.0); EOSINOPHILS % (AUTO) 1.7 % (0.0-6.0); HEMATOCRIT 33 % (39-51); LYMPHOCYTES % (AUTO) 19.1 % (20.0-44.0); MEAN CORPUSCULAR HGB CONC 33 g/dl (31.0-36.0); MEAN CORPUSCULAR VOLUME 79 fL (80-96); MONOCYTES # (AUTO) 0.9 K/uL (0.1-1.30); NEUTROPHILS # (AUTO) 7.1 K/uL (1.8-8.9); NEUTROPHILS % (AUTO) 69.6 % (43.0-81.0); PLATELET COUNT (AUTO) 407 K/uL (150-450); RED BLOOD CELL COUNT(AUTO) 4.17 MIL/uL (4.5-6.0); WHITE BLOOD COUNT (AUTO) 10.2 K/uL (4.3-11.0)
[2021-12-19 06:33] LABS: CALCIUM, SERUM 7.9 mg/dL (8.5-10.1); CREATININE 2.1 mg/dL (0.6-1.3); MAGNESIUM 2.4 mg/dL (1.8-2.4); PHOSPHORUS 3.7 mg/dL (2.5-4.9)
--- NOTE | 2021-12-19 06:40 | NUR ---
MS/RN CLOSING NOTE PATIENT CURRENTLY SLEEPING IN BED. ALERT AND ORIENTED X 4. ABLE TO MAKE NEEDS KNOWN. DENIES PAIN AT THIS TIME. CONTINUES ON ROOM AIR WITH NO S/SX OF RESPIRATORY DISTRESS NOTED. IV ACCESS TO RIGHT AC #18G INTACT AND PATENT. CONTINUES ON IVF NS 125ML/HR. CONTINUES ON IV ABX. DRESSINGS TO BLE C/D/I. CALL LIGHT WITHIN REACH. ASPIRATION, FALL AND SAFETY PRECAUTIONS MAINTAINED. WILL ENDORSE PLAN OF CARE TO ONCOMING SHIFT RN.
--- NOTE | 2021-12-19 07:30 | NUR ---
MS RN OPENING NOTES RECEIVED PATIENT ON BED RESTING AND A/O X4. ON ROOM AIR TOLERATING WELL. NO SOB NOTED. NOT IN DISTRESS. WITH NO COMPLAINTS OF PAIN OR DISCOMFORT AT THIS TIME. WITH IV ACCESS AT RIGHT AC G18 WITH NS AT 125ML/HR INFUSING WELL. SAFETY MEASURES IN PLACED. CALL LIGHT WITHIN REACH. BED ON LOWEST LOCKED POSITION, SIDE RAILS UP X2. WILL CONTINUE TO MONITOR.
[2021-12-19 08:00] VITALS: BP 121/71
--- NOTE | 2021-12-19 08:20 | NUR ---
RN NOTE PATIENT IS COMPLAINING OF PAIN ON BOTH LOWER EXTREMITIES AT THE SCALE OF 10/10 AND ASKED FOR PAIN MEDICATION. PATIENT REFUSED NORCO PAIN MEDS AND ASKED FOR SOMETHING STRONGER THAN NORCO AND VERBALIZED TO GO HOME IF IV MEDS FOR PAIN STRONGER THAN NORCO IS GIVEN TO HIM.
--- NOTE | 2021-12-19 08:40 | NUR ---
RN NOTE PATIENT HAS BECOME AGITATED FOR HE WANTS THE MORPHINE IV MEDS FOR HIS PAIN FOR HE VERBALIZED BRITT AGUEROT WORK FOR HIM FOR HE USES STRONG DRUGS LIKE CRYSTAL METH. REPORTED TO ASSIGNED HOSPITALIST REGARDING PATIENT'S CONCERN. AND SPOKE HE WILL SEE THE PATIENT.
[2021-12-19] MEDS: PANTOPRAZOLE 40 MG TABLET.DR PO SCH (08:49)
[2021-12-19] MEDS: HEPARIN SODIUM, PORCINE 5000 UNITS/1 ML VIAL SQ SCH (08:53)
[2021-12-19] MEDS ORDERED: MORPHINE SULFATE INJ 4 MG/ML DISP.SYRIN IV PRN (09:30)
--- NOTE | 2021-12-19 09:51 | NUR ---
RN NOTE MORPHINE 4MG IV IS ORDERED BY DR. FINCH AND WAS GIVEN TO THE PATIENT PRN FOR PAIN. WILL MONITOR.
--- NOTE | 2021-12-19 12:00 | NUR ---
RN NOTE PATIENT CHANGED HIS CLOTHES AND VERBALIZED TO GO HOME AND SIGN AMA FORM. PATIENT SIGNED AMA FORM. ASSISTED TO THE LOBBY IN STABLE CONDITION. MD AND CHARGE NURSE ARE AWARE OF THE DISCHARGE.
--- NOTE | 2021-12-21 09:09 | NUR ---
SS consult requested over the weekend for alcohol and Meth abuse. SW will follow up at a later time.
== END 2021-12-19 12:00 | disposition left against medical advice (07) | DRG 383 ==
LOC: ER 22:50 → MED 12-18 04:05
PROVIDERS: ADMIT Nurse Practitioner Acute Care; ATTEND Nurse Practitioner Acute Care
DX: L03.116 Cellulitis of left lower limb (principal); N17.0 Acute kidney failure with tubular necrosis; L03.115 Cellulitis of right lower limb; E87.1 Hypo-osmolality and hyponatremia; Z20.822 Contact with and (suspected) exposure to COVID-19; F19.10 Other psychoactive substance abuse, uncomplicated; E66.9 Obesity, unspecified; F17.210 Nicotine dependence, cigarettes, uncomplicated; Z68.37 Body mass index [BMI] 37.0-37.9, adult; F41.9 Anxiety disorder, unspecified; Z56.0 Unemployment, unspecified; L97.829 Non-pressure chronic ulcer of other part of left lower leg with unspecified severity; L97.819 Non-pressure chronic ulcer of other part of right lower leg with unspecified severity; L97.529 Non-pressure chronic ulcer of other part of left foot with unspecified severity; L97.519 Non-pressure chronic ulcer of other part of right foot with unspecified severity; R60.9 Edema, unspecified; M79.672 Pain in left foot; M79.671 Pain in right foot; F11.10 Opioid abuse, uncomplicated
CPT/HCPCS: 36415; 76770-TC; 80048-TC; 80076-TC; 83605-TC; 83735-TC; 84100-TC; 85025-TC; 85730-TC; 87040-TC; 87070-TC; 87081-TC; 93970-TC; A6403; C9803; G0378; J1644; J2270; J3370; J7030; J7060

== ENCOUNTER 2022-07-15 19:17 | Emergency (ER) | payer OTHER ==
[~2022-07-15] VITALS: Ht 180.3 cm; Wt 113.4 kg
--- NOTE | 2022-07-15 19:49 | NUR ---
TO ER BED 13. [id number]. ACCOMPANIED BY [employer] (NOT IN CUSTODY) BILAT LOWER LEG PAIN, SWELLING AND DISCHARGE X 3 MONTHS. PT IS ALERT AND ORIENTED. RR EVEN AND NON LABORED. CONNECTED TO MONITOR
--- NOTE | 2022-07-15 20:03 | NUR ---
Patient does not wish to proceed with medical care recommended by Dr. Deluca. Patient given information related to possible complications, up to and including , which could occur as a result of leaving the hospital at this time. Patient verbalizes understanding of risks involved due to leaving against medical advice. Patient has signed AMA form.
[2022-07-15 21:17] VITALS: BP 115/65
== END 2022-07-15 21:17 | disposition left against medical advice (07) ==
LOC: ER 19:21
DX: L03.116 Cellulitis of left lower limb (principal); L03.115 Cellulitis of right lower limb; F20.9 Schizophrenia, unspecified; F17.200 Nicotine dependence, unspecified, uncomplicated; Z88.8 Allergy status to other drugs, medicaments and biological substances